=== PATIENT | female | born 1950 | race Two or more races ===

== ENCOUNTER 2018-02-18 09:31 | Emergency (ER) | payer OTHER, MEDICARE ==
[~2018-02-18] VITALS: Ht 157.5 cm; Wt 62.1 kg
[2018-02-18] MEDS ORDERED: IPRATRPIUM/ALBUTEROL 0.5/2.5MG 3 ML NEBU. ONE (09:37)
[2018-02-18] MEDS ORDERED: methylPREDNISolone SOD SUCC PF 125 MG/2 ML VIAL. IV ONE (09:45)
[2018-02-18] MEDS ORDERED: IPRATRPIUM/ALBUTEROL 0.5/2.5MG 3 ML NEBU. NEB ONE (09:45)
[2018-02-18] MEDS ORDERED: ALBUTEROL SULFATE 2.5 MG/3 ML NEBU. CONT NEB ONE ×2 (09:45→11:15)
[2018-02-18 09:49] LABS: BASO % 0 % (0-3); EOS # 0.1 x10^3/uL (0.0-0.7); EOS % 1 % (0-3); HEMATOCRIT 41.7 % (36.0-47.0); HEMOGLOBIN 14.4 g/dL (12.0-15.5); LYMPH # 2.1 x10^3/uL (1.0-4.8); LYMPH % 45 % (24-48); MEAN CORPUSCULAR HEMOGLOBIN 34 pg (25-35); MEAN CORPUSCULAR HGB CONC 35 g/dL (31-37); MEAN CORPUSCULAR VOLUME 98 fL (79-100); MONO # 0.3 x10^3/uL (0.0-1.1); MONO % 7 % (0-9); NEUT # 2.1 x10^3uL (1.8-7.7); NEUT % 46 % (31-73); PLATELET COUNT 320 x10^3/uL (140-400); RED BLOOD COUNT 4.23 x10^6/uL (3.50-5.40); RED CELL DISTRIBUTION WIDTH 13.8 % (11.5-14.5); WHITE BLOOD COUNT 4.5 x10^3/uL (4.0-11.0)
--- NOTE | 2018-02-18 09:56 | PHYS DOC ---
Past Medical History Past Medical History: Asthma, Bronchitis, Depression, High Cholesterol, Hypertension Past Surgical History: Other Additional Past Surgical Histo: ANKLE, NOSE Alcohol Use: Heavy Drug Use: None Adult General Chief Complaint Chief Complaint: DYSPNEA/RESPIRATOY DISTRESS HPI HPI Patient is a 67 year old female who presents with acute shortness of breath. Patient is known to have asthma. She relates that she has frequent difficulties with this diagnosis. Today, she was at work when she became acutely short of breath. EMS was called. EMS reports that the patient had an oxygen saturation in the 70s and was barely breathing when they arrived. They initiated albuterol treatment and state that the patient improved and route to the hospital. On arrival to the ER, the patient continues to have severe dyspnea. She is unable to speak more than one or 2 words at a time. She does deny fever. She denies that she has been ill lately otherwise. She does endorse chronic frequent problems controlling her asthma. Review of Systems Review of Systems Constitutional: Denies fever Eyes: Denies change in visual acuity HENT: Denies nasal congestion Respiratory: Denies cough or shortness of breath Cardiovascular: No additional information GI: Denies abdominal pain, nausea : Denies dysuria Musculoskeletal: Denies back pain Integument: Denies rash or skin lesions Neurologic: Denies headache Endocrine: Denies polyuria All other systems were reviewed and found to be within normal limits, except as documented in this note. Current Medications Current Medications Current Medications Medications (Trade) Dose Ordered Sig/Santiago Start Time Stop Time Status Last Admin Dose Admin Albuterol Sulfate (Ventolin Neb Soln) 10 mg 1X ONCE 02/18/18 11:15 02/18/18 11:16 DC 02/18/18 11:17 10 MG Albuterol/ Ipratropium (Duoneb) 3 ml STK-MED ONCE 02/18/18 09:37 02/18/18 09:39 DC Diphenhydramine HCl (Benadryl) 25 mg 1X ONCE 02/18/18 11:15 02/18/18 11:16 DC 02/18/18 11:10 25 MG Magnesium Sulfate 50 ml @ 25 mls/hr 1X ONCE 02/18/18 10:00 02/18/18 11:59 DC 02/18/18 09:46 25 MLS/HR Methylprednisolone Sodium Succinate (SOLU-Medrol 125MG VIAL) 125 mg 1X ONCE 02/18/18 09:45 02/18/18 09:46 DC 02/18/18 09:43 125 MG Sodium Chloride 1,000 ml @ 1,000 mls/hr 1X ONCE 02/18/18 11:15 02/18/18 12:14 DC 02/18/18 11:08 1,000 MLS/HR Allergies Allergies Allergies Coded Allergies Type Severity Reaction Last Updated Verified Penicillins Allergy Intermediate 02/18/18 Yes Physical Exam Physical Exam Constitutional: Well developed, well nourished, significant distress and dyspnea HENT: Normocephalic, atraumatic, bilateral external ears normal, oropharynx moist Eyes: PERRLA, EOMI, conjunctiva normal Neck: Normal range of motion, no tenderness Cardiovascular: tachycardic rhythm Lungs & Thorax: bilateral lung sounds: diminished air mvt in all hall, prolonged exp phase, wheezes, Abdomen: Bowel sounds normal, soft Skin: Warm, dry, no erythema, no rash. Back: No tenderness Extremities: No edema Neurologic: Alert and oriented X 3 Psychologic: Affect normal Current Patient Data Vital Signs Vital Signs Date Time Temp Pulse Resp B/P (MAP) Pulse Ox O2 Delivery O2 Flow Rate FiO2 02/18/18 13:18 96 16 149/78 (101) 97 Room Air 02/18/18 10:07 10.0 02/18/18 09:31 96.3 96.3 Lab Values Laboratory Tests Test 02/18/18 09:35 02/18/18 12:37 White Blood Count 4.5 x10^3/uL (4.0-11.0) Red Blood Count 4.23 x10^6/uL (3.50-5.40) Hemoglobin 14.4 g/dL (12.0-15.5) Hematocrit 41.7 % (36.0-47.0) Mean Corpuscular Volume 98 fL (79-100) Mean Corpuscular Hemoglobin 34 pg (25-35) Mean Corpuscular Hemoglobin Concent 35 g/dL (31-37) Red Cell Distribution Width 13.8 % (11.5-14.5) Platelet Count 320 x10^3/uL (140-400) Neutrophils (%) (Auto) 46 % (31-73) Lymphocytes (%) (Auto) 45 % (24-48) Monocytes (%) (Auto) 7 % (0-9) Eosinophils (%) (Auto) 1 % (0-3) Basophils (%) (Auto) 0 % (0-3) Neutrophils # (Auto) 2.1 x10^3uL (1.8-7.7) Lymphocytes # (Auto) 2.1 x10^3/uL (1.0-4.8) Monocytes # (Auto) 0.3 x10^3/uL (0.0-1.1) Eosinophils # (Auto) 0.1 x10^3/uL (0.0-0.7) Basophils # (Auto) 0.0 x10^3/uL (0.0-0.2) Sodium Level 138 mmol/L (136-145) Potassium Level 3.7 mmol/L (3.5-5.1) Chloride Level 99 mmol/L (98-107) Carbon Dioxide Level 21 mmol/L (21-32) Anion Gap 18 (6-14) H Blood Urea Nitrogen 15 mg/dL (7-20) Creatinine 1.1 mg/dL (0.6-1.0) H Estimated GFR (Cockcroft-Gault) 49.4 Glucose Level 255 mg/dL (70-99) H Lactic Acid Level 6.9 mmol/L (0.4-2.0) *H 2.9 mmol/L (0.4-2.0) H Calcium Level 10.1 mg/dL (8.5-10.1) Troponin I Quantitative < 0.017 ng/mL (0.000-0.055) SE-Etc-E-Type Natriuretic Peptide 53 pg/mL (0-124) Procalcitonin < 0.10 ng/mL (0.00-0.10) Laboratory Tests 02/18/18 09:35 Laboratory Tests 02/18/18 09:35 EKG EKG Sinus Tachy Interpretation Time: 09:40 Radiology/Procedures Radiology/Procedures CXR: no acute cardiopulmonary process Course & Med Decision Making Course & Med Decision Making Pertinent Labs and Imaging studies reviewed. (See chart for details) Patient is evaluated immediately on arrival. She has significant respiratory distress. DuoNeb and hour-long albuterol treatment are started. Magnesium sulfate is given. Chest x-rays ordered. Solu-Medrol 125. 10:30: Patient is greatly improved. She is however noted to have some low blood pressures with a solid pressures in the 60s and 70s. IV fluids are continued. The patient also has a lactate that is elevated. She is subjectively feeling improved. Additional hour-long treatment is ordered. 12:25: Second hour-long treatment is completed. Lungs are currently clear. Oxygen saturation is 97% on room air. Patient feels subjectively improved. Repeat lactate is ordered. 13:30: Vital signs are stable. The patient had 3 L of normal saline. Her lactate improved. Her blood pressures improved. She's had stable blood pressures over the last 2 hours of the visit. Patient is requesting discharge home. Her lungs are clear. She was ambulated through the department and her oxygen saturations stayed above 94%. Patient is discharged home on prednisone over the next 5 days. She is encouraged to use her inhaler on a scheduled basis as well over the next 48 hours. Patient was advised to stop taking atenolol, which is a medication she has been taking for her blood pressure. She is advised to follow-up with her primary care doctor regarding management of her high blood pressure. All of her questions are answered and she is agreeable to the plan of care. Dragon Disclaimer Dragon Disclaimer This electronic medical record was generated, in whole or in part, using a voice recognition dictation system. Departure Departure Referrals: BLAS MORALES (PCP) Scripts Prednisone (PREDNISONE) 50 Mg Tablet 1 TAB PO DAILY, #5 TAB Prov: XANDER SUTTON DO 02/18/18 XANDER SUTTON DO Feb 18, 2018 09:56
[2018-02-18 09:58] LABS: CALCIUM 10.1 mg/dL (8.5-10.1); CREATININE 1.1 mg/dL (0.6-1.0); GFR 49.4; POTASSIUM 3.7 mmol/L (3.5-5.1)
[2018-02-18] MEDS ORDERED: IV NORMAL SALINE 1000ML BAG 1,000 ML IV ONE ×3 (10:00→11:15)
[2018-02-18] MEDS ORDERED: MAGNESIUM SULFATE 2GM 50 ML IV ONE (10:00)
[2018-02-18] MEDS ORDERED: ATEN50TA PO (10:28)
[2018-02-18] MEDS ORDERED: PROAIR HFA8.5 GM INH (10:28)
[2018-02-18] MEDS ORDERED: VENL75TA PO (10:28)
[2018-02-18] MEDS ORDERED: AMLO5TAB7 PO (10:28)
[2018-02-18] MEDS ORDERED: FLUT1DIS3 IH (10:28)
[2018-02-18] MEDS ORDERED: LISI1TAB5 PO (10:28)
[2018-02-18] MEDS ORDERED: LEVO50TA5 PO (10:28)
--- NOTE | 2018-02-18 10:48 | RAD ---
Portable chest, 02/18/2018: HISTORY: Acute dyspnea The heart size and poor a vascularity are normal. There is mild tortuosity of the thoracic aorta. No pulmonary infiltrate is seen. There is no evidence of pleural fluid. IMPRESSION: No acute cardiopulmonary abnormality is detected. Electronically signed by: Scar Corley MD (02/18/2018 10:45 AM) [facility]
--- NOTE | 2018-02-18 11:12 | EKG ---
[facility] [address] [place] [address] Test Date: 2018-02-18 Test Time: 09:36:00 Pat Name: BEATRICE CRUZ Department: Room: Gender: F [employer]: : 1950 Requested By: XANDER SUTTON Order Number: [id number] Reading MD: Mario Eugene Measurements Intervals [place] Rate: 115 P: -44 OR: 104 QRS: 64 QRSD: 82 T: 64 QT: 330 QTc: 458 Interpretive Statements SINUS TACHYCARDIA Electronically Signed On 02-18-2018 11:18:15 CDT by Mario Eugene
[2018-02-18] MEDS ORDERED: diphenhydrAMINE 50 MG/ML VIAL IVP ONE (11:15)
[2018-02-18 13:18] VITALS: BP 149/78
[2018-02-18] MEDS ORDERED: PRED50TA PO (13:24)
== END 2018-02-18 13:35 | disposition home or self-care (01) ==
LOC: ER 09:31
DX: R06.02 Shortness of breath (principal); R00.0 Tachycardia, unspecified; J45.909 Unspecified asthma, uncomplicated; E78.00 Pure hypercholesterolemia, unspecified; I10 Essential (primary) hypertension; F10.20 Alcohol dependence, uncomplicated; Z88.0 Allergy status to penicillin
CPT/HCPCS: 36415; 71045; 80048; 83605; 83880; 84145; 84484; 85025; 93005; 94644; 94645; 96365; 96366; 96375; 99285; J1200; J2930; J3475; J7030; J7613; J7620

== ENCOUNTER 2018-09-23 06:00 | Day surgery (SDC) | payer OTHER ==
[~2018-09-23 06:00] MED LIST: ALBU2.5V8 INH; AMLO5TAB10 PO; ATEN50TA PO; BUPIVAC MPF-EPI 0.5%-1:200000 30 ML VIAL. ONE; CLINDAMYCIN 900MG PREMIX 50 ML IV PRN; FLUT1DIS3 IH; LEVO50TA5 PO; LIDOCAINE 1% 20 ML VIAL. ONE; LIDOCAINE 1% PF 2 ML VIAL. ONE; LISI1TAB5 PO; PRED50TA PO; VENL75TA PO
[2018-09-23] MEDS ORDERED: AMLO10TA8 PO (06:45)
[2018-09-23] MEDS ORDERED: SIMV20TA3 PO (06:46)
[2018-09-23] MEDS ORDERED: OXYC1TAB15 PO (06:46)
--- NOTE | 2018-09-23 06:52 | EKG ---
[facility] [address] [place] [address] Test Date: 2018-09-23 Test Time: 06:52:05 Pat Name: BEATRICE CRUZ Department: Room: Gender: F Construction Job Titles: : 1950 Requested By: EBONIE LARES Order Number: [id number] Reading MD: Chas Cunningham Measurements Intervals [place] Rate: 72 P: 36 UT: 148 QRS: 31 QRSD: 80 T: 38 QT: 396 QTc: 435 Interpretive Statements SINUS RHYTHM NORMAL ECG RI6.01 Compared to ECG 02/18/2018 09:36:00 Sinus tachycardia no longer present Electronically Signed On 09-26-2018 9:39:48 CDT by Chas Cunningham
[2018-09-23] MEDS: IV RINGERS,LACTATED 1000ML 1,000 ML IV SCH ×2 (07:05→08:56)
[2018-09-23] MEDS ORDERED: ONDANSETRON PF 4 MG/2 ML VIAL. ONE (07:07)
[2018-09-23] MEDS ORDERED: DEXAMETHASONE SOD PHOS 4 MG/ML VIAL ONE (07:07)
[2018-09-23] MEDS ORDERED: fentaNYL PF VIAL 100 MCG/2 ML VIAL ONE ×2 (07:07→09:07)
[2018-09-23] MEDS ORDERED: LIDOCAINE 2% PF 5 ML VIAL. ONE (07:07)
[2018-09-23] MEDS ORDERED: MIDAZOLAM HCL/PF 2 MG/2 ML VIAL. ONE (07:07)
[2018-09-23] MEDS ORDERED: PROPOFOL 20 ML IV ONE (07:07)
[2018-09-23] MEDS ORDERED: FAMOTIDINE 20 MG/2 ML VIAL ONE (07:07)
[2018-09-23] MEDS ORDERED: OXYC1TAB19 PO (07:20)
--- NOTE | 2018-09-23 07:22 | DISCH ---
DISCHARGE INSTRUCTIONS Condition on Discharge Condition on Discharge: Stable Activity After Discharge Activity Instructions for Disc: Other, see below (May use hand for fine motor use such as eating writing typing no lifting more than a coffee cup) Weight Bearing Status after Di: Non weight bearing Diet after Discharge Diet after Discharge: Regular Wound Incision Care Wound/Incision Care: Ice to area for comfort, Do not change dressing Contacting the DRChely after DC Call your doctor for: Concerns you may have Follow-Up Follow up with: Jonathan 1 week EBONIE LARES MD Sep 23, 2018 07:22
[2018-09-23] MEDS ORDERED: PHENYLEPHRINE in 0.9% NACL PF 1 MG/10 ML SYRINGE. IV ONE (07:35)
[2018-09-23] MEDS ORDERED: SEVOFLURANE 61 TO 120 MINUTES. IH ONE (08:25)
[2018-09-23] MEDS ORDERED: IV RINGERS,LACTATED 1000ML 1,000 ML IV SCH (08:47)
[2018-09-23] MEDS: fentaNYL PF VIAL 100 MCG/2 ML VIAL IV PRN ×3 (08:54→09:11)
[2018-09-23] MEDS ORDERED: ONDANSETRON PF 4 MG/2 ML VIAL. IV PRN (09:00)
[2018-09-23] MEDS ORDERED: MORPHINE SULFATE 2 MG/ML VIAL. IV PRN (09:00)
[2018-09-23] MEDS ORDERED: PROCHLORPERAZINE 10 MG/2 ML VIAL. IV PRN (09:00)
[2018-09-23] MEDS ORDERED: fentaNYL PF VIAL 100 MCG/2 ML VIAL IV PRN (09:00)
[2018-09-23] MEDS ORDERED: HYDROmorphone 2 MG/ML VIAL IV PRN (09:00)
[2018-09-23] MEDS ORDERED: oxyCODONE/APAP 7.5/325 1 TAB TABLET PO ONE (09:15)
[2018-09-23 10:10] VITALS: BP 143/86
--- NOTE | 2018-09-23 10:27 | PDOC4 ---
Operative Note Operative Note Date of surgery: 09/23/2018 Preoperative diagnosis: Displaced intra-articular right distal radius fracture Postoperative diagnosis: Same Operative procedure: Operative reduction internal fixation 2 part intra- articular distal radius fracture Surgeon: Jonathan Anesthesia: Gen. Estimated blood loss: 10 mL Complications: None Operative indications: Please see my preoperative clinic note of yesterday for detailed operative indications and note that she has a displaced intra-articular distal radius fracture I gone through risks benefits postoperative course the expected poor results of nonoperative treatment possibility of nonhealing infection continued stiffness pain medical or other anesthetic complications among others all her questions were answered she wishes to proceed with surgical evaluation and treatment. Operative text: Patient was identified procedure verified patient placed in the supine position on the operating table. After adequate amounts of general anesthesia were administered, the right upper extremity was prepped and draped in standard sterile fashion with a upper arm tourniquet. After timeout was performed patient procedure identified and verified the right upper extremity was exsanguinated tourniquet inflated to 250 mmHg and a standard volar Bayron approach was carried out to the distal radius subperiosteal dissection was carried out and anatomic reduction carried out under multiple fluoroscopic views. A narrow Fabian DVR distal radius plate was placed under fluoroscopic guidance with a nonlocking screw in the sliding hole to position the plate distal locking screws were then placed under fluoroscopic guidance to ensure reduction and screw length and positioning avoiding any intra-articular positioning proximal row screws were then placed and shaft screws nonlocking were placed to achieve additional shaft fixation. Excellent anatomic alignment was noted under multiple fluoroscopic views with satisfactory hardware placement. Thorough irrigation carried out normal saline solution closure accomplished with buried Vicryl subcuticular Monocryl Steri-Strips and Mastisol and a well-padded volar Ortho-Glass splint were placed. Fingers were noted be warm pink following deflation of tourniquet and patient was returned recovery room in stable condition having tolerated procedure well EBONIE LARES MD Sep 23, 2018 10:27
== END 2018-09-23 10:16 | disposition home or self-care (01) ==
LOC: SURG 06:00
PROVIDERS: ATTEND Orthopaedic Surgery
DX: S52.571A Other intraarticular fracture of lower end of right radius, initial encounter for closed fracture (principal); I10 Essential (primary) hypertension; F32.9 Major depressive disorder, single episode, unspecified; J45.909 Unspecified asthma, uncomplicated; Z88.0 Allergy status to penicillin; Z88.1 Allergy status to other antibiotic agents; Z88.7 Allergy status to serum and vaccine; Z98.890 Other specified postprocedural states; Z98.1 Arthrodesis status; W10.8XXA Fall (on) (from) other stairs and steps, initial encounter; Y93.01 Activity, walking, marching and hiking; Y92.89 Other specified places as the place of occurrence of the external cause; Y99.8 Other external cause status; Z72.89 Other problems related to lifestyle; Z79.899 Other long term (current) drug therapy
CPT/HCPCS: 25608; 76000; 93005; A7015; C1713; J1100; J2001; J2250; J2370; J2405; J2704; J3010; J3490; J7120